=== PATIENT | female | born 1975 | race African-American/Black ===

== ENCOUNTER → 2016-10-04 | Outpatient (CLI) | payer MEDICARE, MEDICAID ==
[~2016-10-04] VITALS: Ht 165.1 cm; Wt 81.2 kg
[~2016-10-04] MED LIST: HYDROmorphone 1 MG/ML (DILAUDID) SYRINGE IV ONE; NS FLUSH 10 ML PRN IV; NS FLUSH 3 ML PRN IV; ONDANSETRON 2 MG/ML (Z0FRAN) 2 ML VIAL IV ONE
[2016-10-04 18:33] VITALS: BP 123/80
--- NOTE | 2016-10-04 19:11 | NUR ---
PT STATES SHE IS STILL HAVING ABDOMINAL PAIN RATED 6/10 AND SOME NAUSEA. PT STATES "USUALLY MORPHINE WORKS FOR ME". PT WOULD LIKE NURSE TO CALL PCP AND SEE IF SHE COULD GET SOMETHING ELSE FOR PAIN, SHE DOES NOT WANT TO GO HOME FEELING THIS BAD. EMAIL SENT TO TO CALL ER REGARDING PT.
--- NOTE | 2016-10-04 19:52 | NUR ---
SPOKE WITH PCP WHO ADVISES THAT HE DOES NOT WANT TO GIVE HER ANY MORE MEDS TONIGHT. HE SUGGESTS SHE SHOULD GO HOME AND TAKE HER REGULAR MEDS AND IF SHE IS STILL FEELING POORLY IN THE MORNING SHE CAN CALL HIS OFFICE. Addendum: 10/04/16 at 2019 by [id number] PT WAS MADE AWARE OF DISCUSSION WITH PCP
== END ==
LOC: EUOP 17:26
PROVIDERS: ATTEND Family Medicine
DX: R10.12 Left upper quadrant pain (principal)
CPT/HCPCS: 36000; 96361; 96374; 96375; J1170; J2405; J7030; 82607; 82728; 82746; 83540; 83550

== ENCOUNTER → 2016-10-04 | Outpatient (REF) | payer MEDICARE, MEDICAID ==
[2016-10-04 17:34] LABS: BASOPHILS % (AUTO) 0 % (0-2); EOSINOPHILS # (AUTO) 0.2 10^3uL; EOSINOPHILS % (AUTO) 3 % (0-4); LYMPHOCYTES # (AUTO) 1.5 X10^3; MONOCYTES # (AUTO) 0.5 X10^3; MONOCYTES % (AUTO) 7 % (3-11); NEUTROPHILS # (AUTO) 5.2 X10^3; NEUTROPHILS % (AUTO) 69 % (51-67); PLATELET COUNT 284 10^3uL (150-450); WHITE BLOOD COUNT 7.56 10^3uL (4.0-11.0)
[2016-10-04 17:44] LABS: BILIRUBIN,URINE Negative (Negative); CLARITY,URINE Clear; COLOR,URINE Yellow; GLUCOSE, URINE (UA) Negative (Negative); LEUKOCYTE ESTERASE ,URINE Negative (Negative)
[2016-10-04 17:57] LABS: ALBUMIN 4.1 g/dL (3.4-5.0); ANION GAP 13.7 MEQ/L (3-15); CALCULATED IONIZED CALCIUM 4.2 mg/dL (3.8-4.6); TOTAL PROTEIN 9.1 g/dL (6.4-8.5)
[2016-10-04 18:03] LABS: MEAN CORPUSCULAR HEMOGLOBIN 22.5 PG (26.0-34.0); MEAN CORPUSCULAR HGB CONC 29.4 g/dL (31.0-37.0); MEAN CORPUSCULAR VOLUME 77 FL (80-100)
[2016-10-04 18:07] LABS: ERYTHROCYTE SEDIMENTATION RT* 92 mm/hr (0-21)
[2016-10-05 20:46] LABS: ANTI-DS DNA 27 U/mL (0-99)
== END ==
LOC: LAB 17:23
PROVIDERS: ATTEND Family Medicine
DX: E83.52 Hypercalcemia (principal); E87.5 Hyperkalemia; J84.112 Idiopathic pulmonary fibrosis; M32.8 Other forms of systemic lupus erythematosus; R10.12 Left upper quadrant pain; D63.8 Anemia in other chronic diseases classified elsewhere
CPT/HCPCS: 80053; 81003; 82150; 82570; 82607; 82728; 82746; 83540; 83550; 83690; 84156; 84443; 85025; 85652; 86160; 86225